=== PATIENT | male | born 1940 | race Caucasian/White ===

== ENCOUNTER 2023-07-24 09:42 | Inpatient (IN) | payer MEDICARE, OTHER, SELFPAY ==
[2023-07-24] VITALS (19 sets, daily range): BP systolic 133–160; BP diastolic 64–96; PULSE 61–92; RESP 11–35; TEMP 36.2–36.8; O2SAT 86–100; BMI 35.8
--- NOTE | 2023-07-24 09:38 | ED.FALL ---
HPI - Fall General Chief Complaint: Fall Stated Complaint: fall lt hip pain Time Seen by Provider: 07/24/23 09:46 Source: patient, EMS, RN notes reviewed and old records reviewed Mode of arrival: EMS Limitations: no limitations History of Present Illness HPI Narrative: 83-year-old male with history of atrial fibrillation anticoagulated on Eliquis. Patient states he was transferring from his chair to his wheelchair last night his adjusted the chair and he lost his balance or somehow slipped between and landed on his buttocks. He describes pain in the left buttock region/sacral region but has increased pain with movement of his left leg. He has had a prior femur fracture in the past with repair. 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 He denies numbness or tingling. He denies hitting his head, no headache, no neck or back pain. No chest pain or shortness of breath, no nausea or vomiting, no diarrhea constipation or urinary issues with. No known drug allergies. Patient currently defers anything for pain. Related Data Home Medications Medication Instructions Recorded Confirmed apixaban 5 mg tablet (Eliquis) 5 mg PO BID 07/24/23 07/24/23 atorvastatin 10 mg tablet 10 mg PO DAILY 07/24/23 07/24/23 finasteride 5 mg tablet 5 mg PO DAILY 07/24/23 07/24/23 furosemide 20 mg tablet 20 mg PO BID edema 07/24/23 07/24/23 ketoconazole 2 % topical cream 1 applic topical BID 07/24/23 07/24/23 metoprolol succinate 25 mg 25 mg PO DAILY 07/24/23 07/24/23 tablet,extended release 24 hr tamsulosin 0.4 mg capsule 0.4 mg PO DAILY 07/24/23 07/24/23 triamcinolone acetonide 0.5 % 1 applic topical BID PRN itch 07/24/23 07/24/23 topical cream Allergies Allergy/AdvReac Type Severity Reaction Status Date / Time NSAIDS (Non-Steroidal AdvReac Intermediate Takes Verified 07/24/23 10:40 Anti-Inflamma eliquis Review of Systems Review of Systems ROS Unobtainable: All systems reviewed & are unremarkable except as noted in HPI and below Patient History Social History household members: spouse Smoking Status: Never smoker alcohol intake: current Exam Narrative Exam Narrative: GEN: Patient appears in moderate distress. HEAD: No evidence of trauma, no raccoon/Li sign. NECK: Nontender, painless range of motion, trachea midline Negative for Nexus criteria, no midline line tenderness, distracting injury, altered mental status, neuro deficit, recent EtOH. EYES: PERRLA, EOMI ENT: External inspection normal, trachea is midline, TM's are normal no hemotypanum, Nares are clear, no septal hematoma, no dental or oral injury, airway is normal and with normal occlusion, No bony tenderness RESP: Chest is nontender and has symmetric movement, no ecchymosis, breath sounds are normal no crackles, wheezes or rales CVS: Heart sounds are normal, no murmur noted, No JVD. ABG/GI: Nontender, soft, normal bowel sounds, no distention, no organomegaly, pelvic rock is negative NEURO: Oriented AOx3, neuro is grossly intact, sensation and motor is normal all 4 extremities moving, cranial nerves II through XII are intact, GCS is 15 PSYCH: Normal mood and affect SKIN: Patient has sending erythema of the bilateral inguinal creases and into the groin with some odor no obvious breakdown of the skin all the way through but some excoriation it extends about 3-4 cm along the edge,, warm and dry, no crepitus and without decubitus BACK: No CVA tenderness, no vertebral tenderness, no step-off's, no crepitus EXT: Atraumatic, hips are nontender that patient has increased pain with movement of the left leg, there is some shortening although he states that is typical. No pedal edema, normal color and temperature, normal range of motion of extremities other extremities. No other bony tenderness with palpation of all 4 extremities. Initial Vital Signs Initial Vital Signs: Vital Signs Pulse Rate 92 H 07/24/23 09:30 Respiratory Rate 18 07/24/23 09:30 Blood Pressure 159/81 H 07/24/23 09:30 Pulse Oximetry 100 07/24/23 09:30 Oxygen Delivery Method Room Air 07/24/23 09:30 Course Orders Ordered: ED Orders 07/24/23 09:37 XR hip w pel if done LT 2V Stat 07/24/23 10:18 Urine Culture Stat Urine Microscopic Stat 07/24/23 10:30 CBC Auto Diff [Complete Blood Count AUTO DIFF] Stat CMP [Comprehensive Metabolic Panel] Stat PTT Partial Thromboplastin Maverick Stat Prothrombin Time INR Stat 07/24/23 10:41 CT abdomen pelvis w con Stat Acetaminophen (Acetaminophen 325 Mg Tablet) 650 mg PO Q4H PRN PRN Reason: Fever/Mild Pain (1-3) Last Admin: 07/24/23 18:09 Dose: 650 mg Documented By: RAMILA Apixaban (Apixaban 5 Mg Tablet) 5 mg PO BID [facility] Atorvastatin Calcium (Atorvastatin 20 Mg Tablet) 10 mg PO DAILY [facility] Finasteride (Finasteride 5 Mg Tablet) 5 mg PO DAILY [facility] Furosemide (Furosemide 20 Mg Tablet) 20 mg PO BID [facility] Hydromorphone HCl (Hydromorphone 0.5 Mg Inj) 0.5 mg IV Q4H PRN PRN Reason: Pain, Moderate (4-6) Ceftriaxone Sodium 1,000 mg/ (Sodium Chloride) 100 mls @ 200 mls/hr IV Q24H LAZARO Last Infusion: 07/24/23 17:57 Dose: Infused Documented By: Admin: 07/24/23 17:12 Dose: 200 mls/hr Documented By: RAMILA Sodium Chloride (Normal Saline 0.9%) 250 mls @ 21 mls/hr IV Q24H PRN PRN Reason: Flush Last Admin: 07/24/23 17:12 Dose: 21 mls/hr Documented By: RAMILA Ketoconazole (Ketoconazole 2% Cream 15 Gm) 1 applic TOP BID [facility] Melatonin (Melatonin 3 Mg Tablet) 6 mg PO BEDTIME [facility] Metoprolol Succinate (Metoprolol Er 25 Mg Tablet) 25 mg PO DAILY [facility] Ondansetron HCl (Ondansetron 4 Mg/2 Ml Inj) 4 mg IV Q4HR PRN PRN Reason: Nausea And Vomiting Ondansetron HCl (Ondansetron 4 Mg Odt) 4 mg SL Q4HR PRN PRN Reason: Nausea Tamsulosin HCl (Tamsulosin 0.4 Mg Capsule) 0.4 mg PO DAILY [facility] Triamcinolone Acetonide (Triamcinolone 0.1% Cream 15 Gm) 1 applic TOP BID PRN PRN Reason: itch Discontinued Medications Acetaminophen (Acetaminophen 325 Mg Tablet) 650 mg PO Q4H PRN PRN Reason: Fever/Mild Pain (1-3) Clotrimazole (Clotrimazole 1% Crm 30 Gm) 1 applic TOP BID LAZARO Stop: 07/29/23 20:59 Hydromorphone HCl (Hydromorphone 0.5 Mg Inj) 0.5 mg IV NOW ONE Stop: 07/24/23 11:56 Last Admin: 07/24/23 12:14 Dose: 0.5 mg Documented By: LIVIA Hydromorphone HCl (Hydromorphone 1 Mg Inj) 1 mg IV NOW ONE Stop: 07/24/23 13:31 Last Admin: 07/24/23 13:50 Dose: 1 mg Documented By: SPF Lidocaine HCl (Lidocaine 2% (Glydo) 6 Ml Gel) 6 ml TOP NOW ONE Stop: 07/24/23 14:10 Last Admin: 07/24/23 14:30 Dose: 6 ml Documented By: SPF Morphine Sulfate (Morphine 2 Mg/Ml Inj) 2 mg IV NOW ONE Stop: 07/24/23 10:42 Last Admin: 07/24/23 10:50 Dose: 2 mg Documented By: SPF Morphine Sulfate (Morphine 2 Mg/Ml Inj) 2 mg IV NOW ONE Stop: 07/24/23 11:15 Last Admin: 07/24/23 11:17 Dose: 2 mg Documented By: ALEJANDRO Vital Signs Vital signs: Vital Signs - 8 hr 07/24/23 10:30 07/24/23 10:30 07/24/23 11:00 Pulse Rate 81 83 Respiratory Rate Blood Pressure 145/81 H Pulse Oximetry 100 94 Oxygen Delivery Method Room Air Room Air 07/24/23 11:32 07/24/23 11:34 07/24/23 11:34 Pulse Rate 76 75 Respiratory Rate 15 19 Blood Pressure 139/73 Pulse Oximetry 100 Oxygen Delivery Method 07/24/23 12:00 07/24/23 12:00 07/24/23 12:30 Pulse Rate 67 Respiratory Rate 11 L Blood Pressure 150/77 H 160/77 H Pulse Oximetry 98 Oxygen Delivery Method 07/24/23 12:30 07/24/23 13:00 07/24/23 13:01 Pulse Rate 61 72 79 Respiratory Rate 23 35 H 33 H Blood Pressure Pulse Oximetry 98 86 L 88 L Oxygen Delivery Method 07/24/23 13:01 07/24/23 13:30 07/24/23 13:31 Pulse Rate 78 Respiratory Rate 28 H Blood Pressure 141/96 H 151/87 H Pulse Oximetry 98 Oxygen Delivery Method 07/24/23 13:31 07/24/23 14:00 07/24/23 14:00 Pulse Rate 89 67 Respiratory Rate 26 H 22 Blood Pressure 144/71 H Pulse Oximetry 96 98 Oxygen Delivery Method [facility] - Fall Lab Data 07/24/23 10:30 07/24/23 10:30 Labs: Lab Results 07/24/23 07/24/23 Range/Units 10:18 10:30 WBC 9.3 (4.5-11.0) X10^3/uL RBC 4.63 (4.5-5.9) X10^6/uL Hgb 14.4 (13.5-17.5) g/dL Hct 41.9 (41-53) % MCV 90.5 (80-100) fL MCH 31.1 (26-34) PG MCHC 34.3 (30-36) % RDW 14.5 (11.6-14.8) % Plt Count 137 L (150-400) X10^3/uL Neut % (Auto) 80.6 H (50-75) % Lymph % (Auto) 8.1 L (25-40) % O'Brien % (Auto) 8.0 (3-14) % Eos % (Auto) 2.6 (2-4) % Baso % (Auto) 0.7 (0-2) % Neut # (Auto) 7500 H (2490-3642) /uL Lymph # (Auto) 800 L (9769-3370) /uL O'Brien # (Auto) 700 (0-900) /uL Eos # (Auto) 200 (0-450) /uL Baso # (Auto) 100 (0-100) /uL PT 24.9 H (10.1-12.7) SECONDS INR 2.2 H (0.9-1.3) APTT 72 H (26-36) SECONDS Sodium 139 (137-145) mmol/L Potassium 3.6 (3.4-5.1) mmol/L Chloride 104 (98-107) mmol/L Carbon Dioxide 27 (22-32) mmol/L BUN 26 H (9-20) mg/dL Creatinine 1.07 (0.66-1.25) mg/dL Estimated GFR > 60 (>60) mL/min BUN/Creatinine Ratio 24.3 H (6-22) Glucose 115 H (80-110) mg/dL Calcium 9.6 (8.4-10.2) mg/dL Total Bilirubin 3.0 H (0.2-1.3) mg/dL AST 22 (17-59) IU/L ALT 22 (<50) IU/L Alkaline Phosphatase 88 (38-126) U/L Total Protein 7.5 (6.3-8.2) g/dL Albumin 3.8 (3.5-5.0) g/dL Globulin 3.7 (1.7-4.1) g/dL Albumin/Globulin Ratio 1.0 (1.0-2.8) Urine RBC None seen (0-5/HPF) Urine WBC 1-5/hpf (0-5/HPF) Ur Squamous Epith Cells 5-10 /hpf H (0-5/HPF) Amorphous Sediment 2+ Urine Bacteria Few (2-10) H (None) Urine Mucus 1+ H (Negative) Ur Culture Indicated? Specimen cultured Urine Dip Bedside Urine Glucose Negative Bedside Urine Bilirubin - Negative Bedside Urine Ketone - Negative Urine Specific [place] 1.010 Bedside Urine Occult Blood - Negative Bedside Urine pH 6.0 Bedside Urine Protein - Negative Bedside Urine Urobilinogen - Negative Bedside Urine Nitrite - Negative Bedside Urine Leukocytes +/- 15 Esterase Imaging Data hip Left xray: Radiologist's Impression: [place] [address] XRay Report Signed Patient: Aditya Sauceda MR#: [id number] : 1940 Acct:[id number] Age/Sex: 83 / M Date of Service: 07/24/23 Loc: ED Accession Number: [id number] Procedure: XR hip w pel if done LT 2V Ordering Provider: Karlie Eugene D.O. PROCEDURE: XR HIP W PEL IF DONE LT 2V INDICATIONS: pelvic pain, sacrum, s/p fall, pain w/ movement left leg TECHNIQUE: AP pelvis with lateral view(s) of the left hip(s). COMPARISON: [facility], , XR PELVIS WITH LATERAL HIP LEFT, 09/15/2022, 10:44. FINDINGS: Bones: Bilateral hip arthroplasty hardware is seen, without findings of failure or loosening. Additional plate and screw fixation can be seen of the left proximal femur. There is a remote fracture fragment seen adjacent to the left greater trochanter, which is stable. Soft tissues: The visualized bowel gas pattern is normal. No suspicious soft tissue calcifications. IMPRESSION: Extensive postoperative hardware, without complication seen. No acute plain film abnormality is seen. If there is point tenderness (or other clinical suspicion for a fracture not seen on these images) please consider a dedicated CT for further evaluation. Dictated by: Davon Sweeney M.D. on 07/24/2023 at 9:30 Approved by: Davon Sweeney M.D. on 07/24/2023 at 9:32 CT abd/pelvis : Radiologist's Impression: [place] [address] CT Scan Report Signed Patient: Aditya Sauceda MR#: [id number] : 1940 Acct:[id number] Age/Sex: 83 / M Date of Service: 07/24/23 Loc: ED Accession Number: [id number] Procedure: CT abdomen pelvis w con Ordering Provider: Karlie Eugene D.O. PROCEDURE: CT ABDOMEN PELVIS W CON INDICATIONS: pelvic/sacrum pain s/p fall TECHNIQUE: After the administration of intravenous contrast, 5 mm thick sections acquired from the diaphragms to the symphysis. 2.5 mm thick coronal and sagittal reformats were acquired. Optional 10-minute delayed imaging may be performed from the kidneys to the bladder. For radiation dose reduction, the following was used: automated exposure control, adjustment of mA and/or kV according to patient size. COMPARISON: [facility], CR, XR PELVIS WITH LATERAL HIP LEFT, 09/15/2022, 10:44. FINDINGS: Image quality: Excellent. ABDOMEN: Lung bases: Lung bases are clear. Heart size is normal. Mitral annular calcification. Trace pericardial effusion. Inferior ribs are intact. No basal pleural effusions or pneumothorax. Solid organs: Liver is normal in size and enhancement, without lacerations. Gallbladder is surgically absent . Biliary system is non-dilated. Pancreas enhances normally, without transection. Spleen is normal in size and enhancement, without lacerations. No adrenal hematomas. Both kidneys enhance normally, without hydronephrosis or lacerations. Peritoneum and bowel: No free fluid or free air. The stomach is decompressed. There are few mildly prominent loops of small bowel demonstrating air-fluid levels. No transition point. Moderate diverticulosis involving the descending and sigmoid colon. No suspicious interloop fluid and no focal inflammation. Nodes and vessels: No retroperitoneal or mesenteric adenopathy. Aorta and inferior vena cava are normal in size and enhancement. Moderate abdominal aortic atherosclerotic calcification. No periaortic hematoma. Miscellaneous: Tiny fat containing umbilical hernia. PELVIS: Genitourinary: Intact urinary bladder. The prostate is largely obscured by beam hardening artifact. Miscellaneous: Small fat and fluid containing left inguinal hernia. There is no intrapelvic fluid collection or hematoma. No suspicious adenopathy. Bones: Prior bilateral hip arthroplasties. The joints remain in appropriate position. There is a probably acute spiral fracture involving the proximal left femoral diaphysis. Fracture plane may extend into the lesser trochanter. There is a lateral compression plate and multiple screws also in the left proximal femoral diaphysis. Decreased mineralization. No visible pelvic fractures. Multilevel degeneration and spurring in the spine. IMPRESSION: 1. Nondisplaced spiral fracture involving the proximal left femur and lesser trochanter. 2. No other definite fractures although the bones are osteopenic. 3. No evidence of trauma within the abdomen or pelvis. Dictated by: Cecile Hernandes M.D. on 07/24/2023 at 12:05 Approved by: Cecile Hernandes M.D. on 07/24/2023 at 12:14 MDM Narrative Medical decision making narrative: On recheck family at bedside. Reviewed x-ray does not show obvious fracture but there is quite a bit of hardware patient is quite tender would recommend getting a CT abdomen pelvis and extending down words. Patient's pain is mostly in the sacrum pelvic area so focus on this but did talk to the electronic instrument trades worker to skin little bit farther down to include the hip as patient is quite uncomfortable moving his leg but not tender on palpation of his leg. Initial labs were obtained. Labs show platelets of 137 appropriate hemoglobin and white count. INR is 2.2 but patient is known to be on Eliquis. Renal function electrolytes are overall appropriate bilirubin is elevated at 3 no priors for comparison glucose is 115 with otherwise normal AST/ALT alk-phos. Discussed with family for patient to follow this up but he is currently asymptomatic. Patient was quite painful and had several doses of pain medication. Patient has nondisplaced spiral fracture involving the proximal left femur unless or trochanter. 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 Patient does not have any other acute findings does have some moderate diverticulosis and moderate abdominal aortic atherosclerotic calcification. Spoke with Orthopedic surgery, Dr. Leary: Reviewed images feels areas very well protected probably does not require surgical intervention recommends time, pain control and outpatient follow-up recommends nonweightbearing at this time until seen in the orthopedic office. Noted patient's surgery was with the orthopedic group at [facility]. Spoke with family they state his last surgery on his hip was in [address] Mar at [facility]. They noticed pain still not well controlled. He is little bit more fidgety and agitated which we discussed might be a combination of the narcotics and age he is had some mild memory issues in the past but typically more with UTIs. Nursing well also bladder scan to make sure he is not retaining with multiple doses of narcotics. Patient about 300 mL in his bladder Lara catheter was placed. Reached out to orthopedic surgery at [facility]. No callback after multiple tries. Spoke with Dr. Lewis, hospitalist. Discussed recommendations from Orthopedic surgery. Do have a phone call out to Orthopedics at [facility] to see if they have any alternative recommendations but seems unlikely. She agrees with that reviewed findings from today labs patient does seem to be having a little bit of worsening mentation in terms of being more fidgety and suspect this may be a combination of his pain with narcotic pain medications several doses. She accepts for inpatient admission. Discharge Plan Departure Patient Disposition: Admitted As Inpatient Clinical Impression: Closed fracture of proximal end of left femur Admit Date/Time: 07/24/23 14:21 Admit Provider: Emmy Lewis
--- NOTE | 2023-07-24 10:01 | PC.NURSE ---
Patient is alert to self, situation, and year, but is unable to answer questions about his medical history. He states the president is Allan. Pt has red, rashy skin breakdown on his groin area and in skin folds. This area was wiped clean and fresh barrier cream applied.
[2023-07-24 10:39] LABS: Add Manual Diff / Slide Review NO; Basophils Absolute Auto 100 /uL (0-100); Basophils Percent Auto 0.7 % (0-2); Eosinophils Absolute Auto 200 /uL (0-450); Eosinophils Percent Auto 2.6 % (2-4); Hematocrit 41.9 % (41-53); Hemoglobin 14.4 g/dL (13.5-17.5); Lymphocytes Absolute Auto 800 /uL (1100-4500); Lymphocytes Percent Auto 8.1 % (25-40); Mean Corpuscular HGB Conc 34.3 % (30-36); Mean Corpuscular Hemoglobin 31.1 PG (26-34); Mean Corpuscular Volume 90.5 fL (80-100); Monocytes Absolute Auto 700 /uL (0-900); Neutrophils Absolute Auto 7500 /uL (1500-7000); Neutrophils Percent Auto 80.6 % (50-75); Platelet Count 137 X10^3/uL (150-400); Red Blood Cell Count 4.63 X10^6/uL (4.5-5.9); Red Cell Distribution Width 14.5 % (11.6-14.8); White Blood Cell Count 9.3 X10^3/uL (4.5-11.0)
--- NOTE | 2023-07-24 10:41 | DI.CT.S_ITS ---
PROCEDURE: CT ABDOMEN PELVIS W CON INDICATIONS: pelvic/sacrum pain s/p fall TECHNIQUE: After the administration of intravenous contrast, 5 mm thick sections acquired from the diaphragms to the symphysis. 2.5 mm thick coronal and sagittal reformats were acquired. Optional 10-minute delayed imaging may be performed from the kidneys to the bladder. For radiation dose reduction, the following was used: automated exposure control, adjustment of mA and/or kV according to patient size. COMPARISON: [facility], CR, XR PELVIS WITH LATERAL HIP LEFT, 09/15/2022, 10:44. FINDINGS: Image quality: Excellent. ABDOMEN: Lung bases: Lung bases are clear. Heart size is normal. Mitral annular calcification. Trace pericardial effusion. Inferior ribs are intact. No basal pleural effusions or pneumothorax. Solid organs: Liver is normal in size and enhancement, without lacerations. Gallbladder is surgically absent . Biliary system is non-dilated. Pancreas enhances normally, without transection. Spleen is normal in size and enhancement, without lacerations. No adrenal hematomas. Both kidneys enhance normally, without hydronephrosis or lacerations. Peritoneum and bowel: No free fluid or free air. The stomach is decompressed. There are few mildly prominent loops of small bowel demonstrating air-fluid levels. No transition point. Moderate diverticulosis involving the descending and sigmoid colon. No suspicious interloop fluid and no focal inflammation. Nodes and vessels: No retroperitoneal or mesenteric adenopathy. Aorta and inferior vena cava are normal in size and enhancement. Moderate abdominal aortic atherosclerotic calcification. No periaortic hematoma. Miscellaneous: Tiny fat containing umbilical hernia. PELVIS: Genitourinary: Intact urinary bladder. The prostate is largely obscured by beam hardening artifact. Miscellaneous: Small fat and fluid containing left inguinal hernia. There is no intrapelvic fluid collection or hematoma. No suspicious adenopathy. Bones: Prior bilateral hip arthroplasties. The joints remain in appropriate position. There is a probably acute spiral fracture involving the proximal left femoral diaphysis. Fracture plane may extend into the lesser trochanter. There is a lateral compression plate and multiple screws also in the left proximal femoral diaphysis. Decreased mineralization. No visible pelvic fractures. Multilevel degeneration and spurring in the spine. IMPRESSION: 1. Nondisplaced spiral fracture involving the proximal left femur and lesser trochanter. 2. No other definite fractures although the bones are osteopenic. 3. No evidence of trauma within the abdomen or pelvis. Dictated by: Cecile Hernandes M.D. on 07/24/2023 at 12:05 Approved by: Cecile Hrenandes M.D. on 07/24/2023 at 12:14
[2023-07-24 10:46] LABS: INR 2.2 (0.9-1.3); Prothrombin Time 24.9 SECONDS (10.1-12.7)
[2023-07-24 10:48] LABS: PTT Partial Thromboplastin Tim 72 SECONDS (26-36)
[2023-07-24 10:50] LABS: Alanine Aminotransferase 22 IU/L (<50); Albumin 3.8 g/dL (3.5-5.0); Alkaline Phosphatase 88 U/L (38-126); Aspartate Aminotransferase 22 IU/L (17-59); BUN Creatinine Ratio 24.3 (6-22); Blood Urea Nitrogen 26 mg/dL (9-20); Calcium 9.6 mg/dL (8.4-10.2); Carbon Dioxide 27 mmol/L (22-32); Chloride 104 mmol/L (98-107); Estimated Glomerular Filt Rate > 60 mL/min (>60); Globulin 3.7 g/dL (1.7-4.1); Glucose 115 mg/dL (80-110); HEMOLYSIS 31 (0-50); Potassium 3.6 mmol/L (3.4-5.1); Sodium 139 mmol/L (137-145); Total Protein 7.5 g/dL (6.3-8.2)
[2023-07-24] MEDS: MORPHINE 2 MG/ML INJ IV ×2 (10:50→11:17)
[2023-07-24 10:53] LABS: Amorphous Sediment Urine 2+; Bacteria Urine Few (2-10); RBC Urine None Seen (0-5/HPF); Squamous Epithelial Cell Urine 5-10 /HPF (0-5/HPF); WBC Urine 1-5/HPF (0-5/HPF)
[2023-07-24 10:54] LABS: Culture Indicated Urine Specimen Cultured; Mucus Urine 1+ (Negative)
[2023-07-24] MEDS: HYDROMORPHONE 0.5 MG INJ IV (12:14)
--- NOTE | 2023-07-24 13:40 | PC.NURSE ---
FABRICATION MACHINE OPERATOR Note: Dr. Powers paged for consult @ [phone].
[2023-07-24] MEDS: HYDROMORPHONE 1 MG INJ IV (13:50)
--- NOTE | 2023-07-24 14:08 | PC.NURSE ---
Patient fidgeting in bed, repositioning arms frequently. Bladder scan was obtained with fluid retention of 384cc. Patient attempted to use the urinal twice but was not able to urinate. Provider made aware, catheter ordered.
[2023-07-24] MEDS: LIDOCAINE 2% (GLYDO) 6 ML GEL TOP (14:30)
--- NOTE | 2023-07-24 15:10 | PC.NURSE ---
Admission skin assessment pictures
--- NOTE | 2023-07-24 15:38 | PM.HP.1 ---
History of Present Illness History of Present Illness Date Patient Seen: 07/24/23 Time Patient Seen: 15:38 Chief complaint: fall lt hip pain Narrative: Aditya Sauceda is a 83-year-old male with history of atrial fibrillation anticoagulated on Eliquis. Patient states he was transferring from his chair to his wheelchair last night and his adjusted the chair and he lost his balance or somehow slipped between and landed on his buttocks. He describes pain in the left buttock region/sacral region but has increased pain with movement of his left leg. He has had a prior femur fracture in the past with repair. 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 He denies numbness or tingling. He denies hitting his head, no headache, no neck or back pain. No chest pain or shortness of breath, no nausea or vomiting, no diarrhea constipation or urinary issues with. No known drug allergies. In the ER, the physician discussed the patient with Ortho color control supervisor, Dr. Leary, and a nonsurgical approach was recommend with pain control and non weight bearing until seen in followup by Ortho. Patient requiring pain medication for comfort. [facility] Social History household members: spouse Smoking Status: Never smoker alcohol intake: current Meds Home Medications and Allergies Home Medications Medication Instructions Recorded Confirmed Type apixaban 5 mg tablet (Eliquis) 5 mg PO BID 07/24/23 07/24/23 History atorvastatin 10 mg tablet 10 mg PO DAILY 07/24/23 07/24/23 History finasteride 5 mg tablet 5 mg PO DAILY 07/24/23 07/24/23 History furosemide 20 mg tablet 20 mg PO BID edema 07/24/23 07/24/23 History ketoconazole 2 % topical cream 1 applic topical BID 07/24/23 07/24/23 History metoprolol succinate 25 mg 25 mg PO DAILY 07/24/23 07/24/23 History tablet,extended release 24 hr tamsulosin 0.4 mg capsule 0.4 mg PO DAILY 07/24/23 07/24/23 History triamcinolone acetonide 0.5 % 1 applic topical BID PRN itch 07/24/23 07/24/23 History topical cream Allergies Allergy/AdvReac Type Severity Reaction Status Date / Time NSAIDS (Non-Steroidal AdvReac Intermediate Takes Verified 07/24/23 10:40 Anti-Inflamma eliquis Review of Systems Review of Systems Narrative: As best as could be obtained form the patient, pertinent findings are in the HPI from a 14 system review. Exam Vital Signs (past 8 hours): - 07/24/23 09:30 07/24/23 09:34 07/24/23 09:35 Temperature Pulse Rate 92 H 80 83 Respiratory Rate 18 Blood Pressure 159/81 H Pulse Oximetry 100 98 98 Oxygen Delivery Method Room Air 07/24/23 09:35 07/24/23 10:00 07/24/23 10:00 Temperature Pulse Rate 68 Respiratory Rate Blood Pressure 159/81 H 148/70 H Pulse Oximetry 100 Oxygen Delivery Method Room Air 07/24/23 10:30 07/24/23 10:30 07/24/23 11:00 Temperature Pulse Rate 81 83 Respiratory Rate Blood Pressure 145/81 H Pulse Oximetry 100 94 Oxygen Delivery Method Room Air Room Air 07/24/23 11:32 07/24/23 11:34 07/24/23 11:34 Temperature Pulse Rate 76 75 Respiratory Rate 15 19 Blood Pressure 139/73 Pulse Oximetry 100 Oxygen Delivery Method 07/24/23 12:00 07/24/23 12:00 07/24/23 12:30 Temperature Pulse Rate 67 Respiratory Rate 11 L Blood Pressure 150/77 H 160/77 H Pulse Oximetry 98 Oxygen Delivery Method 07/24/23 12:30 07/24/23 13:00 07/24/23 13:01 Temperature Pulse Rate 61 72 79 Respiratory Rate 23 35 H 33 H Blood Pressure Pulse Oximetry 98 86 L 88 L Oxygen Delivery Method 07/24/23 13:01 07/24/23 13:30 07/24/23 13:31 Temperature Pulse Rate 78 Respiratory Rate 28 H Blood Pressure 141/96 H 151/87 H Pulse Oximetry 98 Oxygen Delivery Method 07/24/23 13:31 07/24/23 14:00 07/24/23 14:00 Temperature Pulse Rate 89 67 Respiratory Rate 26 H 22 Blood Pressure 144/71 H Pulse Oximetry 96 98 Oxygen Delivery Method 07/24/23 14:30 07/24/23 14:30 07/24/23 14:52 Temperature Pulse Rate 79 Respiratory Rate 22 Blood Pressure 146/82 H Pulse Oximetry 93 Oxygen Delivery Method 07/24/23 15:18 Temperature 98.2 F Pulse Rate 79 Respiratory Rate 17 Blood Pressure 133/76 Pulse Oximetry 99 Oxygen Delivery Method Oxygen Delivery Method Room Air Narrative Exam Narrative: GEN: Patient appears in moderate distress. HEAD: No evidence of trauma, no raccoon/Li sign. NECK: Nontender, painless range of motion, trachea midline EYES: PERRLA, EOMI ENT: External inspection normal, trachea is midline RESP: Chest is nontender and has symmetric movement, no ecchymosis, breath sounds are normal no crackles, wheezes or rales CVS: Heart sounds are normal, no murmur noted, No JVD. ABG/GI: Nontender, soft, normal bowel sounds, no distention, no organomegaly NEURO: Oriented AOx3, neuro is grossly intact, sensation and motor is normal PSYCH: Normal mood and affect SKIN: Patient has sending erythema of the bilateral inguinal creases and into the groin with some odor no obvious breakdown of the skin all the way through but some excoriation it extends about 3-4 cm along the edge,, warm and dry, no crepitus and without decubitus BACK: No CVA tenderness, no vertebral tenderness, no step-off's, no crepitus EXT: Atraumatic, hips are nontender that patient has increased pain with movement of the left leg, there is some shortening although he states that is typical. No pedal edema, normal color and temperature, normal range of motion of extremities other extremities. No other bony tenderness with palpation of all 4 extremities. Objective Labs 07/24/23 10:30 07/24/23 10:30 Labs: Laboratory Results - last 24 hr 07/24/23 07/24/23 10:18 10:30 WBC 9.3 RBC 4.63 Hgb 14.4 Hct 41.9 MCV 90.5 MCH 31.1 MCHC 34.3 RDW 14.5 Plt Count 137 L Neut % (Auto) 80.6 H Lymph % (Auto) 8.1 L [place] % (Auto) 8.0 Eos % (Auto) 2.6 Baso % (Auto) 0.7 Neut # (Auto) 7500 H Lymph # (Auto) 800 L [place] # (Auto) 700 Eos # (Auto) 200 Baso # (Auto) 100 PT 24.9 H INR 2.2 H APTT 72 H Sodium 139 Potassium 3.6 Chloride 104 Carbon Dioxide 27 BUN 26 H Creatinine 1.07 Estimated GFR > 60 BUN/Creatinine Ratio 24.3 H Glucose 115 H Calcium 9.6 Total Bilirubin 3.0 H AST 22 ALT 22 Alkaline Phosphatase 88 Total Protein 7.5 Albumin 3.8 Globulin 3.7 Albumin/Globulin Ratio 1.0 Urine RBC None seen Urine WBC 1-5/hpf Ur Squamous Epith Cells 5-10 /hpf H Amorphous Sediment 2+ Urine Bacteria Few (2-10) H Urine Mucus 1+ H Ur Culture Indicated? Specimen cultured Assessment & Plan Assessment & Plan narrative: # left proximal spiral femur fracture and lesser trochanteric fracture with no compromise to previous surgery hardware, significant left hip pain POA, acute -ER physican consulted Dr. Leary Ortho color control supervisor and was advised non-wt bear until seen by Ortho following discharge and pain control for intractable pain. - Dilaudid and morphine given in the the ER, continue with IV and PO Dilaudid as well as tylenol # history of bilateral total hip arthroplasty POA, chronic - no compromise to hardware form fall # delirium secondary to narcotics in the ER - acquired post narcotic treatment -continue to monitor #non wt bearing of left leg OT to see to help with function POA, acute # groin rash POA, chronic - 1% clotrimazole, apply BID for 5 days # atrial fibrillaton with anticoagulation, continue eliquis 5 mg BID and metoprolol ER 25 mg daily POA, chronic # BPH POA, chronic - continue finasteride and tamsulosin # HTN POA, chronic - continue home medication # hyperlipidemia POA, chronic - continue atrovastatin, monitor lipids # UTI POA, acute -culture urine and treat with ceftriaxone 1 gm q 24 hours DVT prophylaxis: currently on Eliquis, continue CODE: FULL CODE, discussed with patient and Kathy Surrogate decision maker: Kathy I have reviewed home meds and used all available resources to reconcile the home meds. Case discussed with ED physician/APC and patient will be admitted to the hospitalist service for further workup and management. This patient will be admitted as inpatient and will require greater than 2 midnights of hospital time to treat the intractable left hip pain. Quality VTE Deep Vein Thrombosis/Pulmonary Embolism Present on Admission: No Quality VTE Deep Vein Thrombosis/Pulmonary Embolism Present on Admission: No
[2023-07-24] MEDS: SODIUM CHLORIDE 0.9% 250 ML 21 ML IV (17:12)
[2023-07-24] MEDS: cefTRIAXone 1,000 MG in SODIUM CHLORIDE 0.9% 100 ML 200 MG IV (17:12)
[2023-07-24] MEDS: ACETAMINOPHEN 325 MG TABLET 650 MG PO (18:09)
[2023-07-24] MEDS: APIXABAN 5 MG TABLET PO (20:58)
[2023-07-24] MEDS: MELATONIN 3 MG TABLET 6 MG PO (20:58)
[2023-07-24] MEDS: FUROSEMIDE 20 MG TABLET PO (20:58)
[2023-07-24] MEDS: KETOCONAZOLE 2% CREAM 15 GM 1 APPLIC TOP (20:58)
[2023-07-25 00:39] VITALS: BP 132/64; PULSE 77; RESP 17; TEMP 36.1; O2SAT 93
[2023-07-25 05:25] VITALS: BP 138/70; PULSE 83; RESP 16; TEMP 36.1; O2SAT 98
[2023-07-25 05:38] LABS: Add Manual Diff / Slide Review NO; Basophils Absolute Auto 100 /uL (0-100); Basophils Percent Auto 0.6 % (0-2); Eosinophils Absolute Auto 400 /uL (0-450); Eosinophils Percent Auto 4.4 % (2-4); Hematocrit 39.2 % (41-53); Hemoglobin 13.4 g/dL (13.5-17.5); Lymphocytes Absolute Auto 800 /uL (1100-4500); Lymphocytes Percent Auto 8.4 % (25-40); Mean Corpuscular HGB Conc 34.2 % (30-36); Mean Corpuscular Hemoglobin 30.9 PG (26-34); Mean Corpuscular Volume 90.2 fL (80-100); Monocytes Absolute Auto 1000 /uL (0-900); Neutrophils Absolute Auto 7500 /uL (1500-7000); Neutrophils Percent Auto 76.6 % (50-75); Platelet Count 133 X10^3/uL (150-400); Red Blood Cell Count 4.35 X10^6/uL (4.5-5.9); Red Cell Distribution Width 14.6 % (11.6-14.8); White Blood Cell Count 9.8 X10^3/uL (4.5-11.0)
[2023-07-25 05:40] LABS: Alanine Aminotransferase 49 IU/L (<50); Albumin 3.4 g/dL (3.5-5.0); Alkaline Phosphatase 91 U/L (38-126); Aspartate Aminotransferase 62 IU/L (17-59); BUN Creatinine Ratio 26.1 (6-22); Bilirubin Total 2.3 mg/dL (0.2-1.3); Blood Urea Nitrogen 30 mg/dL (9-20); Calcium 9.4 mg/dL (8.4-10.2); Carbon Dioxide 22 mmol/L (22-32); Chloride 106 mmol/L (98-107); Estimated Glomerular Filt Rate > 60 mL/min (>60); Globulin 3.3 g/dL (1.7-4.1); Glucose 118 mg/dL (80-110); HEMOLYSIS 39 (0-50); Sodium 137 mmol/L (137-145); Total Protein 6.7 g/dL (6.3-8.2)
[2023-07-25 06:03] LABS: Cholesterol 70 mg/dL (140-199); HDL Cholesterol 33 mg/dL (40-60); LDL Cholesterol Calculated 24 mg/dL (<100); Triglycerides 65 mg/dL (35-150)
[2023-07-25] MEDS: OXYCODONE/ACETAMINOPHEN 5/325 TABLET 1 TAB PO ×3 (06:26→21:40)
[2023-07-25 08:00] VITALS: BP 134/75; PULSE 78; RESP 18; TEMP 36.4; O2SAT 99
[2023-07-25] MEDS: ACETAMINOPHEN 325 MG TABLET 650 MG PO (09:10)
[2023-07-25 09:11] VITALS: BP 134/75; PULSE 78
[2023-07-25] MEDS: ATORVASTATIN 20 MG TABLET 10 MG PO (09:11)
[2023-07-25] MEDS: METOPROLOL ER 25 MG TABLET PO (09:11)
[2023-07-25] MEDS: FUROSEMIDE 20 MG TABLET PO ×2 (09:11→21:40)
[2023-07-25] MEDS: TAMSULOSIN 0.4 MG CAPSULE PO (09:13)
[2023-07-25] MEDS: APIXABAN 5 MG TABLET PO ×2 (09:13→21:40)
[2023-07-25] MEDS: FINASTERIDE 5 MG TABLET PO (09:13)
[2023-07-25] MEDS: HYDROMORPHONE 0.5 MG INJ IV ×2 (09:15→12:54)
[2023-07-25] MEDS: KETOCONAZOLE 2% CREAM 15 GM 1 APPLIC TOP ×2 (10:08→21:40)
[2023-07-25 10:20] VITALS: PULSE 78
--- NOTE | 2023-07-25 11:33 | PM.PN.1 ---
Subjective Subjective Date Patient Seen: 07/25/23 Interval history: Pain being treated left hip and leg, also having some muscle pain in right leg. No other new complaints. Exam Vital Signs (past 8 hours): - 07/25/23 05:25 07/25/23 08:00 07/25/23 09:11 Temperature 97 F L 97.5 F L Pulse Rate 83 78 78 Respiratory Rate 16 18 Blood Pressure 138/70 134/75 134/75 Pulse Oximetry 98 99 Oxygen Flow Rate 0 07/25/23 10:20 Temperature Pulse Rate 78 Respiratory Rate Blood Pressure Pulse Oximetry Oxygen Flow Rate Oxygen Delivery Method Room Air Oxygen Flow Rate 0 Narrative Exam Narrative: GEN: No acute medical distress. RESP: Chest is nontender and has symmetric movement, breath sounds normal CVS: Heart sounds are normal, no murmur noted, No JVD. ABG/GI: Nontender, soft, normal bowel sounds, no distention, no organomegaly NEURO: Oriented AOx3, neuro is grossly intact, sensation and motor is normal SKIN: Patient has sending erythema of the bilateral inguinal creases and into the groin with some odor no obvious breakdown of the skin all the way through but some excoriation it extends about 3-4 cm along the edge,, warm and dry, no crepitus and without decubitus BACK: No CVA tenderness, no vertebral tenderness, no step-off's, no crepitus EXT: increased pain with movement of the left leg, there is some shortening although he states that is typical. No pedal edema Objective Labs 07/25/23 04:50 07/25/23 04:50 Labs: Laboratory Results - last 24 hr 07/25/23 04:50 WBC 9.8 RBC 4.35 L Hgb 13.4 L Hct 39.2 L MCV 90.2 MCH 30.9 MCHC 34.2 RDW 14.6 Plt Count 133 L Neut % (Auto) 76.6 H Lymph % (Auto) 8.4 L [place] % (Auto) 10.0 Eos % (Auto) 4.4 H Baso % (Auto) 0.6 Neut # (Auto) 7500 H Lymph # (Auto) 800 L [place] # (Auto) 1000 H Eos # (Auto) 400 Baso # (Auto) 100 Sodium 137 Potassium 4.0 Chloride 106 Carbon Dioxide 22 BUN 30 H Creatinine 1.15 Estimated GFR > 60 BUN/Creatinine Ratio 26.1 H Glucose 118 H Calcium 9.4 Total Bilirubin 2.3 H AST 62 H ALT 49 Alkaline Phosphatase 91 Total Protein 6.7 Albumin 3.4 L Globulin 3.3 Albumin/Globulin Ratio 1.0 Triglycerides 65 Cholesterol 70 L LDL Cholesterol, Calc 24 HDL Cholesterol 33 L PFSH Social History household members: spouse Smoking Status: Never smoker alcohol intake: current Assessment & Plan Assessment & Plan narrative: # left proximal spiral femur fracture and lesser trochanteric fracture with no compromise to previous surgery hardware, significant left hip pain POA, acute -ER physican consulted Dr. Leary Ortho operations administrator and was advised non-wt bear until seen by Ortho following discharge and pain control for intractable pain. - Dilaudid and morphine given in the the ER, continue with IV and PO Dilaudid as well as tylenol, dose of po dilaudid established - patient is non wt bearing left side until seen post discharge by ortho #right leg muscle pain -secondary to injury of left hip/leg -pain medication in place # history of bilateral total hip arthroplasty POA, chronic - no compromise to hardware from fall # delirium secondary to narcotics in the ER - acquired post narcotic treatment -continue to monitor #non wt bearing of left leg OT to see to help with function POA, acute # groin rash POA, chronic -2% ketoconazole in place # atrial fibrillaton with anticoagulation, continue eliquis 5 mg BID and metoprolol ER 25 mg daily POA, chronic # BPH POA, chronic - continue finasteride and tamsulosin # HTN POA, chronic - continue home medication # hyperlipidemia POA, chronic - continue atrovastatin, monitor lipids # UTI POA, acute -culture urine and treat with ceftriaxone 1 gm q 24 hours, full culture results still pending Disposition: SNF or home depending on discharge planning DVT prophylaxis: currently on Eliquis, continue CODE: FULL CODE, discussed with patient and Kathy Surrogate decision maker: Kathy [place] VTE Deep Vein Thrombosis/Pulmonary Embolism Present on Admission: No
--- NOTE | 2023-07-25 12:42 | PT.IIE ---
Current Diagnoses Unspecified fracture of left femur, initial encounter for closed fracture (07/24/23) Physical Therapy Inpatient Evaluation/Re-Eval M1 PT/OT-IP Prior Functional Status Start: 07/25/23 14:01 Freq: NEEDED Status: Active Protocol: Document 07/25/23 14:01 CGR (Rec: 07/25/23 14:17 CGR [id number]) Medical Review Prior Functional Status Medical History Reviewed Yes Communication Pt is an effective verbal communicator. Mobility and Gait Pt was able to stand and pivot from his chair to w/c with use of a pole. He has a manual w/c for getting around and could transfer to the toilet and shower chair. Activities of Daily Living and IADL's Pt needed assist for socks and shoes but states he can don pants with a spaghetti machine operator and a shirt. Pt's takes care for all IADLs. Pt has a shower aide that comes in once a week to assist with showers. Family and friends often bring food for the pt and his . Social History Household Members spouse Living Arrangements House Number of Floors (Floors) One Floor Number of Stairs To Enter/Railing? ramp to enter Home Environment High Toilet,Walk in Shower, Ramp Home Equipment Front Wheel Walker,Manual Wheelchair,Raised Toilet Seat w/Armrests,Shower Seat with Backrest,Hand Held Shower, Social Media Project Manager,Grab Bars Near Toilet, Grab Bars In Shower Employment Status Retired Additional Social History Comment Pt states he has a hospital bed but often sleeps in the recliner. He has a transfer pole at his chair and at the bed for transfers. M2 PT-IP Current Condition Start: 07/25/23 14:02 Freq: NEEDED Status: Active Protocol: Document 07/25/23 12:42 AW (Rec: 07/25/23 14:42 AW [id number]) Physical Therapy Current Condition Current Condition Evaluation Date 07/25/23 Treatment Diagnosis periprosthetic spiral fx L femur; impaired mobility Onset Date 07/24/23 M3 PT-IP Subjective Start: 07/25/23 14:02 Freq: NEEDED Status: Active Protocol: Document 07/25/23 12:42 AW (Rec: 07/25/23 14:42 AW [id number]) Subjective Physical Therapy Visit Type Type Initial Evaluation Visit Start Time 12:15 Visit Stop Time 12:42 Total Visit Minutes 27 Notes Co-tx with OT due to complex mobility needs. Physical Therapy Visit Comments Patient Comments Pt reports 10+/10 pain at left hip but is willing to attempt bed level mobility. Patient Goals Pt states firmly that he will be able to manage at home. Therapy Pain Assessment Pain When Pain Assessed During Mobility Pain Present Pain Present Pain Reported Location Left Hip Intensity 10 Scale Used Numeric (0 - 10) Description Sharp,Spasm,Stabbing Pain Behaviors Facial Grimacing,Holding Area, Restlessness,Wincing Pain Management Techniques Modification of Treatment, Timing of Activity with Medications M4 PT-IP Mobility and Gait Start: 07/25/23 14:02 Freq: NEEDED Status: Active Protocol: Document 07/25/23 12:42 AW (Rec: 07/25/23 14:42 AW [id number]) PT-Transfer Assessment Comments Mobility Comments Pt made an effort to scoot toward EOB but experienced what he described as excruciating left hip pain with all movement. Pt unable to transition to sitting EOB. Gait Assessment Comments Gait Comments Unable M5 PT-IP Objective Assessments Start: 07/25/23 14:02 Freq: NEEDED Status: Active Protocol: Document 07/25/23 12:42 AW (Rec: 07/25/23 14:42 AW [id number]) Orientation Orientation/Cognition Level of Alertness Alert Orientation Name,Year,Place,Situation Comments Appears to have limited insight into his current condition and mobility limitations. Gross Range of Motion Upper Extremity ROM Impairments Limitations noted in functional elevation and reach bilaterally. Lower Extremity ROM Assessment Left Impaired Impairments Painful left hip with all ROM right hip. Strength Lower Extremity Strength Assessment Bilaterally Impaired Hip R 3-/5 Knee R 4-/5 flex and ext Ankle R DF lacks ROM to neutral; strength 2/5 Comments Strength Comments LLE painful with all ROM; MMT not assessed. 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 Other Assessments Other Other Assessments Edema BLE (right more affected than left). M6 PT-IP Treatment Start: 07/25/23 14:02 Freq: NEEDED Status: Active Protocol: Document 07/25/23 12:42 AW (Rec: 07/25/23 14:42 AW [id number]) Physical Therapy Treatment Education Education Provided Weight Bearing Status,Safety Other Treatments Other Treatment Performed Discussed discharge recommendation at length M7 PT-IP Assessment and Plan Start: 07/25/23 14:02 Freq: NEEDED Status: Active Protocol: Document 07/25/23 12:42 AW (Rec: 07/25/23 14:42 AW [id number]) PT Summary Assessment and Plan Potential Rehabilitation Potential Fair Status of Condition at Evaluation Evolving Summary Impairments Pain,ROM,Strength,Balance, Sensation,Bed Mobility, Transfers,Gait Assessment Summary Aditya is an 83 yo man seen for PT evaluation while admitted following a ground level fall. He sustained periprosthetic spiral fracture of the left femur. Ortho was consulted and pt is to maintain NWB RLE. No surgery is planned. At baseline, pt's mobility is limited with heavy reliance on a manual wheelchair. Per pt report, he is able to transfer himself from lift recliner to wheelchair using a transfer pole. He can complete bathroom transfers using grab bars. CLOF: Pt's pain is poorly controlled. All available pain meds had already been administered. Pt was unable to effectively move his leg toward EOB and was unwilling for PT and OT to provide total assist due to high pain levels. PT educated pt on his NWB status and discussed recommendation for SNF rehab to improve his transfers to the point of safe discharge home. Pt stated he would be able to manage at home given his unique set up with lift recliner, wheelchair, and transfer poles. PT further educated pt on his marginal mobility at baseline and the impact that NWB RLE would have on his ability to safely transfer, making home discharge unsafe at best. Pt does not seem to comprehend his current limitations but PT continues to recommend SNF. Transport via BLS due to poor sitting tolerance. Goals Bed Mobility Goal Moderate Assistance Transfer Goal Maximal Assistance,Front Wheeled Walker Other Goals - Pt transfers to wheelchair and self propels 25 feet using BUE. - Pt maintains NWB LLE during all mobility. Days to Meet Goals 10 Frequency of Treatment Frequency Of Treatment Once a Day Treatment Plan Physical Therapy Treatment Plan Bed Mobility Training,Transfer Training,Therapeutic Exercise ,Balance Retraining,Discharge Planning,Hot or Cold Pack Other Recommendations and Next Treatment sit up EOB. work with nursing Focus to pre-medicate. supine and seated ther ex as tolerated Weight Bearing Status Weight Bearing Status Non-Weight Bearing Allowed Weight Bearing Amount (enter % NWB LLE or #) (%) Recommendations To Nursing Amount of Assist Needed PT/OT Assist Only Discharge Recommendations PT Discharge Recommendations SNF Rehab Transportation Needs at Discharge Stretcher/Ambulance
--- NOTE | 2023-07-25 12:46 | OT.IP.EVAL ---
Current Diagnoses Unspecified fracture of left femur, initial encounter for closed fracture (07/24/23) Occupational Therapy Inpatient Evaluation/Re-Eval M1 PT/OT-IP Prior Functional Status Start: 07/25/23 14:01 Freq: NEEDED Status: Active Protocol: Document 07/25/23 14:01 CGR (Rec: 07/25/23 14:17 CGR [id number]) Medical Review Prior Functional Status Medical History Reviewed Yes Communication Pt is an effective verbal communicator. Mobility and Gait Pt was able to stand and pivot from his chair to w/c with use of a pole. He has a manual w/c for getting around and could tranfer to the toilet and shower chair. Activities of Daily Living and IADL's Pt needed assist for socks and shoes but states he can don pants with a tightener and a shirt. Pt's takes care for all IADLs. Pt has a shower aide that comes in once a week to assist with showers. Family and friends often bring food for the pt and his . Social History Household Members spouse Living Arrangements House Number of Floors (Floors) One Floor Number of Stairs To Enter/Railing? ramp to enter Home Environment High Toilet,Walk in Shower, Ramp Home Equipment Front Wheel Walker,Manual Wheelchair,Raised Toilet Seat w/Armrests,Shower Seat with Backrest,Hand Held Shower, Rotating Equipment Engineer,Grab Bars Near Toilet, Grab Bars In Shower Employment Status Retired Additional Social History Comment Pt states he has a hospital bed but often sleeps in the recliner. He has a transfer pole at his chair and at the bed for transfers. M2 OT-IP Current Condition Start: 07/25/23 14:01 Freq: Status: Active Protocol: Document 07/25/23 14:01 CGR (Rec: 07/25/23 14:17 CGR [id number]) Occupational Therapy Current Condition Current Condition Evaluation Date 07/25/23 Treatment Diagnosis fall with inopperable L proximal femur spiral fx Diagnosis Onset Date 07/24/23 Weight Bearing Status Weight Bearing Status Non-Weight Bearing M3 OT- IP Subjective and Pain Start: 07/25/23 14:01 Freq: Status: Active Protocol: Document 07/25/23 14:01 CGR (Rec: 07/25/23 14:17 [facility] [id number]) OT- Subjective Occupational Therapy Visit Type Type Initial Evaluation Visit Start Time 12:12 Visit Stop Time 12:46 Total Visit Minutes 34 Notes Partial co-treat with P.T. OT Pain Assessment Pain When Pain Assessed At Rest Pain Present Pain Present Pain Reported Location Left Hip Intensity 10 Scale Used Numeric (0 - 10) Pain Behaviors Wincing Management Techniques Modification of Treatment,Re- positioning,Timing of Activity with Medications M4 OT- IP ADL's Start: 07/25/23 14:01 Freq: Status: Active Protocol: Document 07/25/23 14:01 CGR (Rec: 07/25/23 14:17 [facility] [id number]) OT [id number] Comments OT Self-Feeding Comments pt declined to eat lunch OT ADL-Grooming Comments OT Grooming Comments pt declined OT ADL-Oral Care Comments Oral Care Comments pt declined OT ADL-Dressing Comments OT Dressing Comments not performed OT ADL-Toileting General Evaluation Toileting Ability Total Assistance Comments OT Toileting Comments pt has a adkins OT ADL-Bathing Comments OT Bathing Comments not performed M5 OT- IP IADL's Start: 07/25/23 14:01 Freq: Status: Active Protocol: Document 07/25/23 14:01 CGR (Rec: 07/25/23 14:17 [facility] [id number]) OT-Instrumental Activities of Daily Living Deficits IADL Deficits Identified Deficits Home Safety Awareness Awareness of Need for Assistance at Home Decreased Awareness Ability to Problem Solve Emergency Unable to Problem Solve Situations Medication Management Medication Management Caregiver Administers Money Management Money Management Caregiver Provides Assistance Meal Preparation Meal Preparation Caregiver Provides Assist Repacker Repacker Caregiver Provides Assist Driving Driving Comments Pt does not drive M6 OT- IP Functional Cognition Start: 07/25/23 14:01 Freq: Status: Active Protocol: Document 07/25/23 14:01 CGR (Rec: 07/25/23 14:17 [facility] [id number]) Cognitive Factors Limiting Selfcare Function Cognitive Ability Level of Alertness Alert Patient Orientation Name,Age,Birthday,Year,Day of Week,Place,Situation Attention Span Ability Capable of Focused Attention, Capable of Sustained Attention Ability to Follow Commands Able to Follow One Step Commands with Increased Time, Able to Follow One Step Commands with Repetition Cognitive Comments Cognitive Assessment Comments Pt would benefit from a formal cog assessment. Pt had difficulty accepting that he would likely need to go to SNF . OT- Vision and Hearing OT- Vision Assessment Visual Acuity Glasses For Reading Visual Attentiveness WFL Occular Pursuits WFL Visual Convergence WFL M7 OT- IP Mobility and Balance Start: 07/25/23 14:01 Freq: Status: Active Protocol: Document 07/25/23 14:01 CGR (Rec: 07/25/23 14:17 CGR [id number]) OT-Transfer Assessment Comments Mobility Comments Attempted to sit on EOB but pt unable to perform. Pt is having significant pain just sitting in bed. M8 OT- IP Objective Assessments Start: 07/25/23 14:01 Freq: Status: Active Protocol: Document 07/25/23 14:01 CGR (Rec: 07/25/23 14:17 CGR [id number]) OT Gross Range of Motion Upper Extremity Range of Motion Assessment Within Functional Limits ROM Impairments B shlds 0-90 OT Strength Upper Extremity Strength Assessment Within Functional Limits Comments Strength Comments 4 to 4+/5 OT- Coordination Assessment Upper Extremity Finger to Nose Test Within Functional Limits Finger Tapping Test Within Functional Limits OT-Muscle Tone Assessment Muscle Tone WNL Yes OT Sensation Assessment Edema Edema Absent M9 OT- IP Assessment and Plan Start: 07/25/23 14:01 Freq: Status: Active Protocol: Document 07/25/23 14:01 CGR (Rec: 07/25/23 14:17 CGR [id number]) OT Summary Assessment and Plan Potential Rehabilitation Potential Good Analytic Complexity at Evaluation Moderate Summary OT Impairments Pain,Range of Motion,Strength, Functional Cognition, Functional Mobility,Grooming, Dressing,Toileting,Bathing, Toilet Transfers,Shower Transfers,Activity Tolerance Progress Towards Goals Slow Progress due to Pain Assessment Summary Pt presents as a moderate complexity evaluation s/p admit for fall with L proximal femur spiral fx that is nonsurgical. Pt is experiencing significant pain and was unable to participate in any out of bed activity today. Pt is most appropriate for SNF at this time. Recommend d/c to SNF. Goals Grooming Goal Independent Dressing Goal Independent Toileting Goal Independent Bathing Goal Independent Toilet Transfer Goal Independent Shower Transfer Goal Independent Days to Meet Goals 30 Frequency of Treatment Frequency Of Treatment Once a Day Treatment Plan OT Treatment Plan ADL Training,Functional Cognition Training,Functional Mobility,Patient/Family Education,Discharge Planning Other Treatment Recommendations and Next Cognitive assessment, bed Treatment Focus mobility up to EOB if able. Discharge Recommendations OT Discharge Recommendations SNF Rehab Transportation Needs at Discharge Stretcher/Ambulance
[2023-07-25] MEDS: cefTRIAXone 1,000 MG in SODIUM CHLORIDE 0.9% 100 ML 200 MG IV (16:19)
[2023-07-25] MEDS: HYDROMORPHONE 2 MG TABLET 1 MG PO (16:20)
[2023-07-25 20:00] VITALS: BP 138/76; PULSE 66; RESP 16; TEMP 36.3; O2SAT 97
[2023-07-25] MEDS: MELATONIN 3 MG TABLET 6 MG PO (21:40)
--- NOTE | 2023-07-25 23:08 | DI.CT.S_ITS ---
PROCEDURE: CT HEAD/BRAIN WO CON INDICATIONS: altered mental status TECHNIQUE: Noncontrast 4.5 mm thick angled axial sections acquired from the foramen magnum to the vertex, with coronal and sagittal reformats. For radiation dose reduction, the following was used: automated exposure control, adjustment of mA and/or kV according to patient size. COMPARISON: [facility], CT, CT ANGIO HEAD AND NECK, 09/05/2022, 23:51. FINDINGS: Image quality: Excellent. CSF spaces: Basal cisterns are patent. No extra-axial fluid collections. The ventricles are symmetric in size and shape. Brain: No intracranial bleeds or masses. There is cerebral volume loss for age, with resultant ventricular and sulcal prominence. There are periventricular and deep white matter chronic small vessel ischemic changes. There is intracranial internal carotid artery atherosclerosis. Skull and face: Calvarium and visualized facial bones appear intact, without suspicious lesions. Sinuses: Visualized sinuses and mastoids are clear. IMPRESSION: 1. No CT evidence of acute intracranial abnormalities. No significant changes from previous study. Dictated by: Aki Starr M.D. on 07/25/2023 at 23:33 Approved by: Aki Starr M.D. on 07/25/2023 at 23:35
[2023-07-26] VITALS (7 sets, daily range): BP systolic 118–156; BP diastolic 64–96; PULSE 78–92; RESP 17–18; TEMP 36.6–37.1; O2SAT 96–98
[2023-07-26] MEDS: HYDROMORPHONE 0.5 MG INJ IV ×3 (01:53→20:53)
--- NOTE | 2023-07-26 02:24 | PC.NURSE ---
2255: Code stroke called. Pt exhibiting new onset stuttering and aphasia, unable to complete a sentence. scallop dredger teledoc Dr. Burrows made aware, NIH 6, BG 138. Last known normal around 0. CT ordered. 0145: Pt became agitated, adamant he needs to sit on edge of bed. Staff allowed pt to try to scoot self to edge of bed, needing lots of help and essentially unable to do so. Pt educated multiple times on non-weightbearing status as well as hip fx. Pt states he does not have a hip fx and just needs to sit on edge of bed. Pt yelling at staff. stating its too painful to be in bed, Dilaudid administered. Pt back to high fowlers position with knees raised in bed. Bed alarm on, call light in hand, pt watching tv. Dr. Burrows notified of agitation.
[2023-07-26] MEDS: HYDROMORPHONE 2 MG TABLET 1 MG PO ×2 (05:45→23:06)
[2023-07-26] MEDS: HALOPERIDOL 5 MG/ML VIAL IV (08:48)
[2023-07-26] MEDS: ATORVASTATIN 20 MG TABLET 10 MG PO (08:53)
[2023-07-26] MEDS: FUROSEMIDE 20 MG TABLET PO ×2 (08:53→20:53)
[2023-07-26] MEDS: TAMSULOSIN 0.4 MG CAPSULE PO (08:53)
[2023-07-26] MEDS: OXYCODONE/ACETAMINOPHEN 5/325 TABLET 1 TAB PO (09:02)
[2023-07-26] MEDS: APIXABAN 5 MG TABLET PO ×2 (09:02→20:53)
[2023-07-26] MEDS: FINASTERIDE 5 MG TABLET PO (09:03)
[2023-07-26] MEDS: METOPROLOL ER 25 MG TABLET PO (09:06)
[2023-07-26] MEDS: KETOCONAZOLE 2% CREAM 15 GM 1 APPLIC TOP (09:58)
[2023-07-26] MEDS: OXYCODONE IR 10 MG TABLET PO ×2 (10:00→18:11)
--- NOTE | 2023-07-26 14:50 | PT.IPTN ---
Current Diagnoses Unspecified fracture of left femur, initial encounter for closed fracture (07/24/23) Physical Therapy Treatment Note M2 PT-IP Current Condition Start: 07/25/23 14:02 Freq: NEEDED Status: Active Protocol: Document 07/25/23 12:42 AW (Rec: 07/25/23 14:42 AW [id number]) Physical Therapy Current Condition Current Condition Evaluation Date 07/25/23 Treatment Diagnosis periprosthetic spiral fx L femur; impaired mobility Onset Date 07/24/23 M3 PT-IP Subjective Start: 07/25/23 14:02 Freq: NEEDED Status: Active Protocol: Document 07/26/23 16:06 TS (Rec: 07/26/23 16:19 TS [id number]) Subjective Physical Therapy Visit Type Type Treatment Note Visit Start Time 14:50 Visit Stop Time 15:15 Total Visit Minutes 25 Notes Family present Number of WELDER PLASTIC Visits 1 Physical Therapy Visit Comments Patient Comments Pt found resting in bed, is confused and does not know why he is the hospital, is agreeable to try to sit EOB. Therapy Pain Assessment Pain When Pain Assessed During Mobility Pain Present Pain Present Pain Reported M4 PT-IP Mobility and Gait Start: 07/25/23 14:02 Freq: NEEDED Status: Active Protocol: Document 07/26/23 16:06 TS (Rec: 07/26/23 16:19 TS [id number]) PT-Bed Mobility Assessment Supine to Sit Supine to Sit Maximum Assistance,1 Person Assistance PT-Transfer Assessment Comments Mobility Comments Pt found resting in bed, agreeable to PT. Pt required MaxA for LE's to EOB, pt calling out in pain, requests back to bed. Pt is in too much pain to attempt any more bed mobility. Pt performed quad set x5, heel slide x5 and ankle pumps x5. Educated family on assisting pt with bed ex. Pt was left in bed, all needs met. Gait Assessment Comments Gait Comments Unable M5 PT-IP Objective Assessments Start: 07/25/23 14:02 Freq: NEEDED Status: Active Protocol: Document 07/25/23 12:42 AW (Rec: 07/25/23 14:42 AW [id number]) Orientation Orientation/Cognition Level of Alertness Alert Orientation Name,Year,Place,Situation Comments Appears to have limited insight into his current condition and mobility limitations. Gross Range of Motion Upper Extremity ROM Impairments Limitations noted in functional elevation and reach bilaterally. Lower Extremity ROM Assessment Left Impaired Impairments Painful left hip with all ROM right hip. Strength Lower Extremity Strength Assessment Bilaterally Impaired Hip R 3-/5 Knee R 4-/5 flex and ext Ankle R DF lacks ROM to neutral; strength 2/5 Comments Strength Comments LLE painful with all ROM; MMT not assessed. 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 Other Assessments Other Other Assessments Edema BLE (right more affected than left). M6 PT-IP Treatment Start: 07/25/23 14:02 Freq: NEEDED Status: Active Protocol: Document 07/26/23 16:06 TS (Rec: 07/26/23 16:19 TS [id number]) Physical Therapy Treatment Education Education Provided Weight Bearing Status,Safety M7 PT-IP Assessment and Plan Start: 07/25/23 14:02 Freq: NEEDED Status: Active Protocol: Document 07/26/23 16:06 TS (Rec: 07/26/23 16:19 TS [id number]) PT Summary Assessment and Plan Potential Rehabilitation Potential Fair Summary Impairments Pain,ROM,Strength,Balance, Sensation,Bed Mobility, Transfers,Gait Progress Towards Goals Slow Progress due to Pain Assessment Summary Aditya is making slow progress with his mobility this session . He required MaxA for LEs to EOB, once to EOB pt reported too much pain and moved LEs back to bed. He performed LE exercises of quad sets, ankle pumps and heel slides with max cueing throughout. PT is recommending SNF rehab to progress functional mobility and transfers. Goals Bed Mobility Goal Moderate Assistance Transfer Goal Maximal Assistance,Front Wheeled Walker Other Goals - Pt transfers to wheelchair and self propels 25 feet using BUE. - Pt maintains NWB LLE during all mobility. Days to Meet Goals 10 Frequency of Treatment Frequency Of Treatment Once a Day Treatment Plan Physical Therapy Treatment Plan Bed Mobility Training,Transfer Training,Therapeutic Exercise ,Balance Retraining,Discharge Planning,Hot or Cold Pack Other Recommendations and Next Treatment sit up EOB. work with nursing Focus to pre-medicate. supine and seated ther ex as tolerated Weight Bearing Status Weight Bearing Status Non-Weight Bearing Allowed Weight Bearing Amount (enter % NWB LLE or #) (%) Recommendations To Nursing Amount of Assist Needed PT/OT Assist Only Discharge Recommendations PT Discharge Recommendations SNF Rehab Transportation Needs at Discharge Stretcher/Ambulance
--- NOTE | 2023-07-26 15:29 | OT.IPNOTE ---
Pt just attempted therapy , TEENAGE BABYSITTER just tired and pt is too much pain to try to get up per pt's and son. Pt not open to doing any grooming needs at this time. No charge.
[2023-07-26] MEDS: cefTRIAXone 1,000 MG in SODIUM CHLORIDE 0.9% 100 ML 200 MG IV (16:17)
--- NOTE | 2023-07-26 17:06 | CM.DANOTE ---
DCP Assessment Note Patient is an 83yo M here following GLF. PCP Dr Gaviria (sp?) at [facility] Payer Medicare and regence PILOT STEAM YACHT reviewed EMR. Per PT/OT, rec SNF. PILOT STEAM YACHT entered room and introduced self and role. Patient reported being in a lot of pain. Patient lives at home with Kathy ([phone]). Local adult sons help as supports. Has caregivers with [facility]. w/c bound at baseline. has a shower seat/bedside commode/transfer poles at home. Home completely wheelchair accessible. Gave verbal permission to CM team to discuss dcp with . RN updated on patient's pain. PILOT STEAM YACHT spoke with over the phone and later in day at bedside with patient and son Mike. Patient in agreement to SNF for rehab. Patient and family preference is [facility]. PILOT STEAM YACHT answered family questions to best of ability re: SNF and [facility]. PILOT STEAM YACHT spoke with Breanne at [facility]. Agreed to review. CM Mutual Funds Agent Tania sent initial referral packet to [facility] for review. Plan: CM team will follow up with [facility] for acceptance. CM team will continue to follow closely. SUJATHA Hi Discharge Planning/Care Management CM Discharge Assessment Start: 07/26/23 11:11 Freq: Status: Active Protocol: Document 07/26/23 11:11 (Rec: 07/26/23 14:28 [id number]) Discharge Planning Assessment Assigned Applications Support Analyst SUJATHA Reddy DPOA/Assigned Designee Name Kathy Sauceda (spouse Contact Information [phone] Advance Directives? No History Provided By Patient,Significant Other, Medical Record Prior Living Arrangements House Household Members spouse Comment adult children also help provide supports regularly to patient and spouse Type of transporation used prior to Relies on Others admit Independent with ADL's No Needs Assistance With Bathing,Meal Prep,Managing Medications,Home Chores / Shopping Community Services used prior to Home Health Aid admission: Comment Used [facility] in past DME Already Rented / Owned Hospital Bed,Wheelchair, Elevated Toilet Seat Comment transfer poles, shower seat, bedside commode Patient/Family Preference [facility] Facility Comment patient wants to go home. Spouse does not believe can care for him at home. Preference is [facility]. Discharge Plan [facility] Transportation Arrangement if SNF, transport with facility. if home, transport with family in POV Referrals Initiated [facility] Additional Comment referral being reviewed by [facility] Preference [facility] Has Agency SNF been contacted Yes Whiteboard Updated in Patient Room with Yes name and ext. # of Applications Support Analyst Review Status In Process Next Review Type Continued Stay Review
--- NOTE | 2023-07-26 18:34 | PM.PN.1 ---
Subjective Subjective Date Patient Seen: 07/25/23 Interval history: Pain being treated left hip and leg, also having some muscle pain in right leg. No other new complaints. Overnight he had slurred speech, head CT unremarkable with return to baseline this morning. He is on apixaban, he had no neurological deficits this morning on my evaluation. MRI would not seemingly change room attendant at this time as he is on AC and etiology was likely due to pharmacological interventions for pain. Exam Vital Signs (past 8 hours): - 07/26/23 12:08 07/26/23 16:00 Temperature 98 F Pulse Rate 90 88 Respiratory Rate 18 Blood Pressure 128/72 Pulse Oximetry 98 Oxygen Flow Rate 0 Oxygen Delivery Method Room Air Oxygen Flow Rate 0 Narrative Exam Narrative: GEN: No acute medical distress. RESP: Chest is nontender and has symmetric movement, breath sounds normal CVS: Heart sounds are normal, no murmur noted, No JVD. ABG/GI: Nontender, soft, normal bowel sounds, no distention, no organomegaly NEURO: Oriented AOx3, neuro is grossly intact, sensation and motor is normal SKIN: Patient has sending erythema of the bilateral inguinal creases and into the groin with some odor no obvious breakdown of the skin all the way through but some excoriation it extends about 3-4 cm along the edge,, warm and dry, no crepitus and without decubitus BACK: No CVA tenderness, no vertebral tenderness, no step-off's, no crepitus EXT: increased pain with movement of the left leg, there is some shortening although he states that is typical. No pedal edema Objective Labs 07/25/23 04:50 07/25/23 04:50 [facility] Social History household members: spouse Smoking Status: Never smoker alcohol intake: current Assessment & Plan Assessment & Plan narrative: # left proximal spiral femur fracture and lesser trochanteric fracture with no compromise to previous surgery hardware, significant left hip pain POA, acute -ER physican consulted Dr. Leary Ortho population health manager and was advised non-wt bear until seen by Ortho following discharge and pain control for intractable pain. - Dilaudid and morphine given in the the ER, continue with IV and PO Dilaudid as well as tylenol, dose of po dilaudid established - patient is non wt bearing left side until seen post discharge by ortho #right leg muscle pain -secondary to injury of left hip/leg -pain medication in place # history of bilateral total hip arthroplasty POA, chronic - no compromise to hardware from fall # delirium secondary to narcotics in the ER - acquired post narcotic treatment -continue to monitor #non wt bearing of left leg OT to see to help with function POA, acute # groin rash POA, chronic -2% ketoconazole in place # atrial fibrillaton with anticoagulation, continue eliquis 5 mg BID and metoprolol ER 25 mg daily POA, chronic # BPH POA, chronic - continue finasteride and tamsulosin # HTN POA, chronic - continue home medication # hyperlipidemia POA, chronic - continue atrovastatin, monitor lipids # UTI POA, acute -culture urine and treat with ceftriaxone 1 gm q 24 hours, urine with proteus and will complete 7 days therapy. Continue ceftriaxone for now, transition to oral on discharge to SNF. Disposition: SNF recommended, looking for placement. DVT prophylaxis: currently on Eliquis, continue CODE: FULL CODE, discussed with patient and Kathy Surrogate decision maker: Kathy Quality VTE Deep Vein Thrombosis/Pulmonary Embolism Present on Admission: No
--- NOTE | 2023-07-26 20:33 | PC.NURSE ---
Addendum entered by Joseph Gillette R.N. 07/27/23 06:32: Pt has intermittently been bleeding from penis after pt self removed catheter. Addendum entered by Joseph Gillette R.N. 07/26/23 22:40: Order changed to replace adkins. Adkins in, all bedding changed. HEALTHCARE ASSOCIATE sitting with patient at this time. Pt needing constant reminders to not pull on adkins and unable to get out of bed. Original Note: Pt calling out for , when walking into room this RN noticed adkins has been removed by pt, bulb in tact. Pt denying pain in penis area. order caller dr. riggs made aware, no new order for adkins at this time. Order to bladder scan post void, if >400 replace adkins.
[2023-07-26] MEDS: MELATONIN 3 MG TABLET 6 MG PO (20:53)
[2023-07-27 06:00] VITALS: BP 141/59; PULSE 90; RESP 21; TEMP 36.8; O2SAT 98
[2023-07-27 08:50] VITALS: BP 141/59
[2023-07-27] MEDS: TAMSULOSIN 0.4 MG CAPSULE PO (08:50)
[2023-07-27] MEDS: FUROSEMIDE 20 MG TABLET PO ×2 (08:50→20:18)
[2023-07-27] MEDS: METOPROLOL ER 25 MG TABLET PO (08:50)
[2023-07-27] MEDS: FINASTERIDE 5 MG TABLET PO (08:50)
[2023-07-27] MEDS: ATORVASTATIN 20 MG TABLET 10 MG PO (08:50)
[2023-07-27] MEDS: APIXABAN 5 MG TABLET PO ×2 (08:51→20:18)
[2023-07-27] MEDS: TRIAMCINOLONE 0.1% CREAM 15 GM 1 APPLIC TOP (09:10)
--- NOTE | 2023-07-27 10:40 | PT.IPTN ---
Current Diagnoses Unspecified fracture of left femur, initial encounter for closed fracture (07/24/23) Physical Therapy Treatment Note M2 PT-IP Current Condition Start: 07/25/23 14:02 Freq: NEEDED Status: Active Protocol: Document 07/25/23 12:42 AW (Rec: 07/25/23 14:42 AW [id number]) Physical Therapy Current Condition Current Condition Evaluation Date 07/25/23 Treatment Diagnosis periprosthetic spiral fx L femur; impaired mobility Onset Date 07/24/23 M3 PT-IP Subjective Start: 07/25/23 14:02 Freq: NEEDED Status: Active Protocol: Document 07/27/23 10:40 AB (Rec: 07/27/23 11:41 AB [id number]) Subjective Physical Therapy Visit Type Type Treatment Note Visit Start Time 10:40 Visit Stop Time 11:15 Total Visit Minutes 35 Number of JOB PLACEMENT COUNSELOR Visits 0 Physical Therapy Visit Comments Patient Comments agreeable to do PT Therapy Pain Assessment Pain When Pain Assessed During Mobility Pain Present Pain Present Pain Reported Location Left Hip Intensity 10 Scale Used Numeric (0 - 10) M4 PT-IP Mobility and Gait Start: 07/25/23 14:02 Freq: NEEDED Status: Active Protocol: Document 07/27/23 10:40 AB (Rec: 07/27/23 11:41 AB [id number]) PT-Bed Mobility Assessment Supine to Sit Supine to Sit Maximum Assistance,2 Person Assistance Scooting Scooting to Edge of Bed Maximum Assistance,Dependent PT-Transfer Assessment Sit to and From Stand Sit to and from Stand Total Assistance,2 Person Assistance,Use of Upper Extremities Equipment Transfer Assistive Device Gait Belt,Front Wheeled Walker Orthotic/Prosthetic Devices or Brace: No Transfers Transfer Destination Chair Transfer Technique Mechanical Lift Transfer Ability Level of Assist Total Assistance,2 Person Assistance Comments Mobility Comments pt supine in bed and agreeable to do PT. completed supine to sit max A x 2 and max cues. increase posterior trunk lean in sitting and increase lateral trunk lean to the L. pt with increase guarding during movement and has increase fear of falling. pt also has decrease midline awareness and feels like he is going to fall per pt when trunk was positioned centered. educated pt on LLE weight bearing restriction of NWB. attempted sit to stand x 2 providing max A x 2 but pt unable to complete. pt with increase fear of falling and stated that he cannot do it. Assisted NAC to transfer pt to chair using mechanical lift. positioned pt on the chair. call light and table placed within reach. M5 PT-IP Objective Assessments Start: 07/25/23 14:02 Freq: NEEDED Status: Active Protocol: Document 07/25/23 12:42 AW (Rec: 07/25/23 14:42 AW [id number]) Orientation Orientation/Cognition Level of Alertness Alert Orientation Name,Year,Place,Situation Comments Appears to have limited insight into his current condition and mobility limitations. Gross Range of Motion Upper Extremity ROM Impairments Limitations noted in functional elevation and reach bilaterally. Lower Extremity ROM Assessment Left Impaired Impairments Painful left hip with all ROM right hip. Strength Lower Extremity Strength Assessment Bilaterally Impaired Hip R 3-/5 Knee R 4-/5 flex and ext Ankle R DF lacks ROM to neutral; strength 2/5 Comments Strength Comments LLE painful with all ROM; MMT not assessed. 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 Other Assessments Other Other Assessments Edema BLE (right more affected than left). M6 PT-IP Treatment Start: 07/25/23 14:02 Freq: NEEDED Status: Active Protocol: Document 07/27/23 10:40 AB (Rec: 07/27/23 11:41 AB [id number]) Physical Therapy Treatment Education Education Provided Weight Bearing Status,Safety M7 PT-IP Assessment and Plan Start: 07/25/23 14:02 Freq: NEEDED Status: Active Protocol: Document 07/27/23 10:40 AB (Rec: 07/27/23 11:41 AB [id number]) PT Summary Assessment and Plan Potential Rehabilitation Potential Fair Summary Impairments Pain,ROM,Strength,Balance, Coordination,Sensation,Tone, Cognition,Bed Mobility, Transfers,Gait,Activity Tolerance Progress Towards Goals Slow Progress due to Pain,Slow Progress due to Activity Tolerance,Slow Progress - Other Assessment Summary pt requiring max A x 2 to total Ax 2 with mobility and recommending use of mechanical lift to transfer with nursing staff at this time. pt will require SNF rehab to improve strength and mobility. Goals Bed Mobility Goal Moderate Assistance Transfer Goal Maximal Assistance,Front Wheeled Walker Other Goals - Pt transfers to wheelchair and self propels 25 feet using BUE. - Pt maintains NWB LLE during all mobility. Days to Meet Goals 10 Frequency of Treatment Frequency Of Treatment Once a Day Treatment Plan Physical Therapy Treatment Plan Bed Mobility Training,Transfer Training,Therapeutic Exercise ,Balance Retraining,Discharge Planning,Hot or Cold Pack Weight Bearing Status Weight Bearing Status Non-Weight Bearing Allowed Weight Bearing Amount (enter % NWB LLE or #) (%) Recommendations To Nursing Amount of Assist Needed Mechanical Lift Discharge Recommendations PT Discharge Recommendations SNF Rehab Transportation Needs at Discharge Wheelchair/Cabulance,Stretcher /Ambulance
[2023-07-27] MEDS: OXYCODONE IR 10 MG TABLET PO ×2 (10:53→20:18)
--- NOTE | 2023-07-27 12:11 | CM.DPC ---
DCP SNF Planning Per MD, pt not yet medically stable to d/c to SNF today but making improvements and will switch to oral abx at d/c. Per PT and MD, recommending BLS transport due to non-weight bearing, pain, inability to move leg. SW confirmed with [facility] that they can accept the pt if stable for d/c tomorrow Thurs 07/28 and SW updated on likely BLS transport needed. SW met bedside with pt, spouse, and adult son and updated on [facility] acceptance and likely d/c tomorrow. SW discussed cabulance vs BLS ambulance transport and the potential that insurance might not fully cover cost of BLS. Pt and family acknowledge understanding but feel BLS needed due to pain levels. PASRR completed. BLS form completed and documentation attached. Plan: SW to follow for plan of [facility] tomorrow if medically stable via BLS transport. SUJATHA Thurman
--- NOTE | 2023-07-27 15:00 | PM.PN.1 ---
Subjective Subjective Date Patient Seen: 07/25/23 Interval history: Continues to have difficulty with movement, but was able to sit up today. Continues on current pain medications. Accepted for SNF tomorrow. Exam Vital Signs (past 8 hours): - 07/27/23 08:50 Blood Pressure 141/59 H Oxygen Delivery Method Room Air Oxygen Flow Rate 0 Narrative Exam Narrative: GEN: No acute medical distress. RESP: Chest is nontender and has symmetric movement, breath sounds normal CVS: Heart sounds are normal, no murmur noted, No JVD. ABG/GI: Nontender, soft, normal bowel sounds, no distention, no organomegaly NEURO: Oriented AOx3, neuro is grossly intact, sensation and motor is normal SKIN: Patient has sending erythema of the bilateral inguinal creases and into the groin with some odor no obvious breakdown of the skin all the way through but some excoriation it extends about 3-4 cm along the edge,, warm and dry, no crepitus and without decubitus BACK: No CVA tenderness, no vertebral tenderness, no step-off's, no crepitus EXT: increased pain with movement of the left leg, there is some shortening although he states that is typical. No pedal edema Objective Labs 07/25/23 04:50 07/25/23 04:50 [facility] Social History household members: spouse Smoking Status: Never smoker alcohol intake: current Assessment & Plan Assessment & Plan narrative: # left proximal spiral femur fracture and lesser trochanteric fracture with no compromise to previous surgery hardware, significant left hip pain POA, acute -ER physican consulted Dr. Sapphire Guillen honing machine operator semiautomatic and was advised non-wt bear until seen by Ortho following discharge and pain control for intractable pain. - Dilaudid and morphine given in the the ER, continue with IV and PO Dilaudid as well as tylenol, dose of po dilaudid established - patient is non wt bearing left side until seen post discharge by ortho #right leg muscle pain -secondary to injury of left hip/leg -pain medication in place # history of bilateral total hip arthroplasty POA, chronic - no compromise to hardware from fall # delirium secondary to narcotics in the ER - acquired post narcotic treatment -continue to monitor #non wt bearing of left leg OT to see to help with function POA, acute # groin rash POA, chronic -2% ketoconazole in place # atrial fibrillaton with anticoagulation, continue eliquis 5 mg BID and metoprolol ER 25 mg daily POA, chronic # BPH POA, chronic - continue finasteride and tamsulosin # HTN POA, chronic - continue home medication # hyperlipidemia POA, chronic - continue atrovastatin, monitor lipids # UTI POA, acute -culture urine and treat with ceftriaxone 1 gm q 24 hours, urine with proteus and will complete 7 days therapy. Continue ceftriaxone for now, transition to oral on discharge to SNF. Disposition: SNF recommended, accepted and has a bed arranged for tomorrow. DVT prophylaxis: currently on Eliquis, continue CODE: FULL CODE, discussed with patient and Kathy Surrogate decision maker: Kathy Quality VTE Deep Vein Thrombosis/Pulmonary Embolism Present on Admission: No
--- NOTE | 2023-07-27 15:51 | OT.IPNOTE ---
Attempted to see pt, pt asleep and not able to arouse. To check on the pt tomorrow.
[2023-07-27 16:50] VITALS: BP 160/71; PULSE 106; RESP 26; TEMP 36.3; O2SAT 97
[2023-07-27] MEDS: cefTRIAXone 1,000 MG in SODIUM CHLORIDE 0.9% 100 ML 200 MG IV (16:50)
--- NOTE | 2023-07-27 17:04 | OT.IP.TRT ---
Current Diagnoses Unspecified fracture of left femur, initial encounter for closed fracture (07/24/23) Occupational Therapy Treatment Note M2 OT-IP Current Condition Start: 07/25/23 14:01 Freq: Status: Active Protocol: Document 07/25/23 14:01 CGR (Rec: 07/25/23 14:17 CGR [id number]) Occupational Therapy Current Condition Current Condition Evaluation Date 07/25/23 Treatment Diagnosis fall with inopperable L proximal femur spiral fx Diagnosis Onset Date 07/24/23 Weight Bearing Status Weight Bearing Status Non-Weight Bearing M3 OT- IP Subjective and Pain Start: 07/25/23 14:01 Freq: Status: Active Protocol: Document 07/27/23 17:12 CCC (Rec: 07/27/23 17:18 CCC [id number]) OT- Subjective Occupational Therapy Visit Type Type Treatment Note Visit Start Time 16:43 Visit Stop Time 17:04 Total Visit Minutes 21 Occupational Therapy Visit Comments Patient Comments Pt awake and agreed to do grooming needs and sponge off. Patient/Caregiver Goals TO get better. OT Pain Assessment Pain When Pain Assessed At Rest Pain Present Pain Present Denied Pain M4 OT- IP ADL's Start: 07/25/23 14:01 Freq: Status: Active Protocol: Document 07/27/23 17:12 CCC (Rec: 07/27/23 17:18 CCC [id number]) OT [id number] Comments OT Self-Feeding Comments Not at meal time. OT ADL-Grooming General Evaluation Grooming Ability Standby Assistance Areas Needing Assistance Retrieving/Set-up of Grooming Items Comments OT Grooming Comments Pt able to do after set-up and cues. OT ADL-Oral Care General Eval Oral Care Ability Standby Assistance Comments Oral Care Comments Pt needing assist for set-up and cues for completeness. OT ADL-Dressing General Eval Lower Body Dressing Ability Moderate Assistance Comments OT Dressing Comments MOD A to assist with his gown. OT ADL-Bathing Bathing Type Bathing Type Sponge Bath Comments OT Bathing Comments Pt able to assist to wash his chest and under his left arm and needing assist for his right arm. M5 OT- IP IADL's Start: 07/25/23 14:01 Freq: Status: Active Protocol: Document 07/25/23 14:01 CGR (Rec: 07/25/23 14:17 CGR [id number]) OT-Instrumental Activities of Daily Living Deficits IADL Deficits Identified Deficits Home Safety Awareness Awareness of Need for Assistance at Home Decreased Awareness Ability to Problem Solve Emergency Unable to Problem Solve Situations Medication Management Medication Management Caregiver Administers Money Management Money Management Caregiver Provides Assistance Meal Preparation Meal Preparation Caregiver Provides Assist Animal Nursery Worker Animal Nursery Worker Caregiver Provides Assist Driving Driving Comments Pt does not drive M6 OT- IP Functional Cognition Start: 07/25/23 14:01 Freq: Status: Active Protocol: Document 07/27/23 17:12 [facility] (Rec: 07/27/23 17:18 [facility] [id number]) Cognitive Factors Limiting Selfcare Function Cognitive Ability Level of Alertness Alert,Confusional State Attention Span Ability Capable of Focused Attention, Capable of Sustained Attention Ability to Follow Commands Able to Follow One Step Commands with Increased Time, Able to Follow One Step Commands with Repetition Cognitive Comments Cognitive Assessment Comments Pt orientated to his name but not aware that he is in the hospital. Noted left neglect of his left arm and cued pt to brain picker his left arm as it would hang off the armrest, notified pt's nurse. Pt also having more difficulty with use of left hand while trying to sponge off to hold the wash cloth so able to wash under his right arm pit. M7 OT- IP Mobility and Balance Start: 07/25/23 14:01 Freq: Status: Active Protocol: Document 07/25/23 14:01 CGR (Rec: 07/25/23 14:17 R [id number]) OT-Transfer Assessment Comments Mobility Comments Attempted to sit on EOB but pt unable to perform. Pt is having significant pain just sitting in bed. M8 OT- IP Objective Assessments Start: 07/25/23 14:01 Freq: Status: Active Protocol: Document 07/25/23 14:01 R (Rec: 07/25/23 14:17 R [id number]) OT Gross Range of Motion Upper Extremity Range of Motion Assessment Within Functional Limits ROM Impairments B shlds 0-90 OT Strength Upper Extremity Strength Assessment Within Functional Limits Comments Strength Comments 4 to 4+/5 OT- Coordination Assessment Upper Extremity Finger to Nose Test Within Functional Limits Finger Tapping Test Within Functional Limits OT-Muscle Tone Assessment Muscle Tone WNL Yes OT Sensation Assessment Edema Edema Absent M9 OT- IP Assessment and Plan Start: 07/25/23 14:01 Freq: Status: Active Protocol: Document 07/27/23 17:12 [facility] (Rec: 07/27/23 17:18 [facility] [id number]) OT Summary Assessment and Plan Potential Rehabilitation Potential Good Analytic Complexity at Evaluation Moderate Summary OT Impairments Pain,Range of Motion,Strength, Functional Cognition, Functional Mobility,Grooming, Dressing,Toileting,Bathing, Toilet Transfers,Shower Transfers,Activity Tolerance Progress Towards Goals Slow Progress due to Medical Issues,Slow Progress due to Cognition Assessment Summary Pt able to participate in grooming, oral care , and sponging off for OT today. Noted pt appearing to have left neglect of his left arm and cues pt to lift it up to the arm rest as hanging down on the left side, pt's nurse notified. Pt to go to skilled rehab when medically stable. Goals Grooming Goal Independent Dressing Goal Independent Toileting Goal Independent Bathing Goal Independent Toilet Transfer Goal Independent Shower Transfer Goal Independent Days to Meet Goals 30 Frequency of Treatment Frequency Of Treatment Once a Day Treatment Plan OT Treatment Plan ADL Training,Functional Cognition Training,Functional Mobility,Patient/Family Education,Discharge Planning Other Treatment Recommendations and Next Cognitive assessment Treatment Focus Discharge Recommendations OT Discharge Recommendations SNF Rehab Transportation Needs at Discharge Wheelchair/Cabulance,Stretcher /Ambulance
[2023-07-27 20:00] VITALS: BP 141/66; PULSE 89; RESP 18; TEMP 36.5; O2SAT 95
[2023-07-27] MEDS: MELATONIN 3 MG TABLET 6 MG PO (20:18)
[2023-07-27] MEDS: CYCLOBENZAPRINE 10 MG TABLET PO (23:53)
[2023-07-28] MEDS: OXYCODONE IR 10 MG TABLET PO ×2 (00:17→04:34)
[2023-07-28 04:00] VITALS: BP 117/60; PULSE 76; RESP 18; TEMP 36.5; O2SAT 97
--- NOTE | 2023-07-28 08:38 | PM.DS.1 ---
History of Present Illness History of Present Illness Date Patient Seen: 07/28/23 Time Patient Seen: 15:38 Chief complaint: fall lt hip pain Narrative: Aditya Sauceda is a 83-year-old male with history of atrial fibrillation anticoagulated on Eliquis. Patient states he was transferring from his chair to his wheelchair last night and his adjusted the chair and he lost his balance or somehow slipped between and landed on his buttocks. He describes pain in the left buttock region/sacral region but has increased pain with movement of his left leg. He has had a prior femur fracture in the past with repair. 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 He denies numbness or tingling. He denies hitting his head, no headache, no neck or back pain. No chest pain or shortness of breath, no nausea or vomiting, no diarrhea constipation or urinary issues with. No known drug allergies. In the ER, the physician discussed the patient with Ortho electronic musical instrument repairer, Dr. Leary, and a nonsurgical approach was recommend with pain control and non weight bearing until seen in followup by Ortho. Patient requiring pain medication for comfort. Discharge Providers Provider Date of admission: 07/24/23 14:21 Discharge Date: 07/28/23 Consults: 07/24/23 16:21 Consult to Occupational Therapy Evaluate & Treat Comment: Needs to be non wt hearing right leg, due to troch Physician Instructions: Evaluate and treat 07/24/23 16:24 Consult to Occupational Therapy Evaluate & Treat Comment: clarification , left leg is non wt bearing Physician Instructions: Evaluate and treat 07/25/23 10:20 Consult to Physical Therapy Evaluate & Treat Comment: Physician Instructions: Evaluate and Treat Discharge provider: Ab Hdz DO Summary Hospital Course Discharge Diagnosis: # left proximal spiral femur fracture and lesser trochanteric fracture with no compromise to previous surgery hardware, significant left hip pain POA, acute # history of bilateral total hip arthroplasty POA, 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 He did develop significant confusion after narcotic administration in the emergency room that quickly improved. Opiates were limited as much as possible after with improvement. Orthopedics was consulted whom recommended non weight bearing on that side and non-operative management. He was provided with pain control. He did develop urinary retention with UTI, which was found on admission. He was started on ceftriaxone initially, and transitioned to ciprofloxacin on the day of discharge to complete 7 days total treatment. Multiple trials of void were attempted with continued obstruction. He should follow up with outpatient urology in a few weeks ideally to see if adkins can be removed at a later date. He will follow up with outpatient orthopedic surgery for further management of his hip fracture. He was transferred to SNF for ongoing therapies as a result of his weight bearing limitations with his fracture. Time Spent with Patient Time spent: Greater than 30 minutes Exam Vital Signs (past 8 hours): - 07/28/23 04:00 Temperature 97.7 F Pulse Rate 76 Respiratory Rate 18 Blood Pressure 117/60 Pulse Oximetry 97 Oxygen Flow Rate 0 Oxygen Delivery Method Room Air Oxygen Flow Rate 0 Narrative Exam Narrative: GEN: No acute medical distress. RESP: Chest is nontender and has symmetric movement, breath sounds normal CVS: Heart sounds are normal, no murmur noted, No JVD. ABG/GI: Nontender, soft, normal bowel sounds, no distention, no organomegaly NEURO: Oriented AOx3, neuro is grossly intact, sensation and motor is normal SKIN: Patient has sending erythema of the bilateral inguinal creases and into the groin with some odor no obvious breakdown of the skin all the way through but some excoriation it extends about 3-4 cm along the edge,, warm and dry, no crepitus and without decubitus BACK: No CVA tenderness, no vertebral tenderness, no step-off's, no crepitus EXT: increased pain with movement of the left leg, there is some shortening although he states that is typical. No pedal edema Objective Labs 07/25/23 04:50 07/25/23 04:50 [facility] Social History household members: spouse Smoking Status: Never smoker alcohol intake: current Discharge Plan Discharge Plan Patient Disposition: SNF Provider Discharge Comment: 83 M admitted with a L hip fracture. Management is non-operative at least initially given prior hardware. He is non-weight bearing of his L side for at least 6 weeks. He will follow up with orthopedics as an outpatient. Recommended for SNF at discharge. Patient with history of BPH, but with opiate use he has failed multiple attempts at adkins removal. Continue adkins for now, recommend outpatient follow up with either urology or PCP to see if adkins can be removed in a couple of weeks. With obstruction, he was also found to have UTI for which he will complete therapy at SNF with 2 more days of ciprofloxacin based on sensitivities. Discharge orders & Medications Prescriptions: New melatonin 3 mg Tablet 6 mg PO BEDTIME Qty: 30 0RF oxycodone 10 mg Tablet 5 - 10 mg PO Q4HR PRN (Reason: Pain, Severe (7-10)) Qty: 20 0RF ciprofloxacin HCl 500 mg tablet 500 mg PO BID 2 Days Qty: 4 0RF Continued triamcinolone acetonide 0.5 % cream 1 applic topical BID PRN (Reason: itch) atorvastatin 10 mg tablet 10 mg PO DAILY tamsulosin 0.4 mg capsule 0.4 mg PO DAILY furosemide 20 mg tablet 20 mg PO BID metoprolol succinate 25 mg tablet extended release 24 hr 25 mg PO DAILY ketoconazole 2 % cream 1 applic topical BID finasteride 5 mg tablet 5 mg PO DAILY Eliquis 5 mg tablet 5 mg PO BID Follow up/Referrals: Maldonado Leary MD [Physician] - 6 Weeks Discharge Health Status Multidrug resistant organism: No MDRO Precautions: [place] Diet/Activity/Treatments Diet: Diet as Tolerated Liquid consistency: Normal/Thin Food texture: Regular Activity: NWB LLE x6 weeks. Catheter: 2-way Adkins Catheter comment: For acute urinary obstruction in setting of BPH [facility] Reason for rehabilitation: Recovery r/t decondition Rehab type: Physical therapy and Occupational therapy Visit Report/Discharge Packet Stand Alone Forms: Patient Portal/API Quality VTE Deep Vein Thrombosis/Pulmonary Embolism Present on Admission: No
--- NOTE | 2023-07-28 09:27 | CM.DPNOTE ---
Called [facility] and spoke to Skyler for 1300 roller picker for BLS transport to [facility] today per Ynes. Tania Alberto CM Surgical Sales Representative.
[2023-07-28 09:50] VITALS: BP 148/81; PULSE 97; RESP 16; TEMP 36.5; O2SAT 95
[2023-07-28 10:00] VITALS: BP 148/81
[2023-07-28] MEDS: ATORVASTATIN 20 MG TABLET 10 MG PO (10:00)
[2023-07-28] MEDS: APIXABAN 5 MG TABLET PO (10:00)
[2023-07-28] MEDS: TAMSULOSIN 0.4 MG CAPSULE PO (10:00)
[2023-07-28] MEDS: FINASTERIDE 5 MG TABLET PO (10:00)
[2023-07-28] MEDS: FUROSEMIDE 20 MG TABLET PO (10:00)
[2023-07-28] MEDS: METOPROLOL ER 25 MG TABLET PO (10:00)
[2023-07-28] MEDS: TRIAMCINOLONE 0.1% CREAM 15 GM 1 APPLIC TOP (10:01)
--- NOTE | 2023-07-28 11:05 | CM.DPC ---
DCP Continued: ROLL WINDER reviewed EMR. Per provider patient cleared to d/c today to [facility]. ROLL WINDER, MILA Marin, and Breanne from coordinated a time for transport, 1300 via BLS. MILA Marin arranged BLS transport and faxed med list/PASSR/dc information to . MILA Marin placed original PASSRR and med list in chart/gave RN report number/updated CONSULTING PRACTICE DIRECTOR. ROLL WINDER updated RN. ROLL WINDER spoke with spouse via phone. Spouse in agreement with plan. Spouse acknowledges there may be a cost with BLS transport. ROLL WINDER attempted to tell patient d/c timeline. Patient sleeping heavily, nursing staff notified and advised to let patient rest. Plan: d/c to today via [facility]. CM Team will continue to follow closely. SUJATHA Hi
[2023-07-28] MEDS: ACETAMINOPHEN 325 MG TABLET 650 MG PO (12:27)
[2023-07-28] MEDS: OXYCODONE/ACETAMINOPHEN 5/325 TABLET 1 TAB PO (12:28)
--- NOTE | 2023-07-28 12:51 | PC.NURSE ---
Pt is packed up and ready for discharge to [facility]. NO IV. Pt was premedicated for cosme transfer and then BLS transfer to [facility]. Creams applied to pannus, jonatan area, and bottom. Pt was very reluctant about being turned. Report called to [facility] RN and all questions answered.
== END 2023-07-28 13:25 | DRG 535 ==
LOC: ED 14:19 → AC 14:21
PROVIDERS: Admitting Provider Neuromusculoskeletal Medicine, Sports Medicine; Emergency Provider Emergency Medicine; Referring Provider Emergency Medicine; Visit Provider Neuromusculoskeletal Medicine, Sports Medicine
DX: S72.125A Nondisplaced fracture of lesser trochanter of left femur, initial encounter for closed fracture (principal); G92.8 Other toxic encephalopathy; N39.0 Urinary tract infection, site not specified; T40.605A Adverse effect of unspecified narcotics, initial encounter; I48.91 Unspecified atrial fibrillation; R21 Rash and other nonspecific skin eruption; I10 Essential (primary) hypertension; E78.5 Hyperlipidemia, unspecified; R47.81 Slurred speech; N40.1 Benign prostatic hyperplasia with lower urinary tract symptoms; R33.8 Other retention of urine; W18.30XA Fall on same level, unspecified, initial encounter; Z96.643 Presence of artificial hip joint, bilateral; Z79.01 Long term (current) use of anticoagulants
CPT/HCPCS: 36415; 51798; 70450; 73502; 74177; 80053; 80061; 81003; 81015; 85025; 85610; 85730; 87077; 87086; 87186; 96374; 96375; 96376; 97110; 97162; 97166; 97530; 97535; 99285; J0696; J1170; J1630; J2270; Q9967